=== PATIENT | male | born 1965 | race Caucasian/White ===

== ENCOUNTER 2017-02-26 21:24 | Emergency (ER) | payer MEDICAID ==
[~2017-02-26] VITALS: Ht 177.8 cm; Wt 66.5 kg
[2017-02-26 23:12] VITALS: BP 117/60
== END 2017-02-26 23:14 | disposition home or self-care (01) ==
LOC: ED 22:48
DX: S39.011A Strain of muscle, fascia and tendon of abdomen, initial encounter (principal); X58.XXXA Exposure to other specified factors, initial encounter; Y93.89 Activity, other specified; Y99.8 Other external cause status; Y92.89 Other specified places as the place of occurrence of the external cause
CPT/HCPCS: 76857; 76870; 99284

== ENCOUNTER 2018-02-14 12:13 | Emergency (ER) | payer MEDICAID ==
[~2018-02-14] VITALS: Ht 177.8 cm; Wt 63.6 kg
[2018-02-14] MEDS ORDERED: BACITRACIN ZINC OINT 500U/GM, 0.9 GM ONE (13:09)
[2018-02-14] MEDS ORDERED: ACETAMINOPHEN 500 MG TABLET ONE (13:22)
[2018-02-14] MEDS ORDERED: ACETAMINOPHEN 500 MG TABLET PO ONE (13:30)
[2018-02-14 13:37] VITALS: BP 131/85
== END 2018-02-14 13:40 | disposition home or self-care (01) ==
LOC: ED 13:30
DX: L03.116 Cellulitis of left lower limb (principal); K08.89 Other specified disorders of teeth and supporting structures
CPT/HCPCS: 99283

== ENCOUNTER 2021-02-16 17:57 | Emergency (ER) | payer MEDICAID ==
[~2021-02-16] VITALS: Ht 177.8 cm; Wt 65.9 kg
--- NOTE | 2021-02-16 18:14 | NUR ---
LAW FIRM ADMINISTRATOR: PT TO ROOM FROM DAGOBERTO RODRIGUEZ
--- NOTE | 2021-02-16 18:30 | NUR ---
CC OF LEG PAIN AND SWELLING. 4+ NON PITTING EDEMA NOTED TO BILAT FEET AND LEGS, STOPD [place]. PT HAS WEAK PULSES BILAT AND CAP REFILL IS <3 SECONDS. PT STATES SWEELLING HAS BEEN PRESENT FOR 3 WEEKS AND IT IS BECOMING PAINFUL TO WALK ON
[2021-02-16 19:16] LABS: BASOPHILS % (AUTO) 1 % (0-1); EOSINOPHILS % (AUTO) 2 % (1-7); LYMPHOCYTES % (AUTO) 27 % (22-44); MEAN CORPUSCULAR HEMOGLOBIN 30.8 pg (27.5-34.5); MEAN CORPUSCULAR HGB CONC 32.9 g/dL (33.2-36.2); MEAN PLATELET VOLUME 6.8 fL (7.4-10.4); MONOCYTES % (AUTO) 14 % (2-9); NEUTROPHILS % (AUTO) 56 % (42-75); PLATELET COUNT 283 x10^3/uL (130-400); RED CELL DISTRIBUTION WIDTH 13.5 % (9.4-14.8)
[2021-02-16 19:28] LABS: ALANINE AMINOTRANSFERASE 15 U/L (12-78); ALBUMIN 3.4 g/dL (3.4-5.0); CALCIUM 8.7 mg/dL (8.5-10.1); CHLORIDE 106 mmol/L (98-107); CREATININE 1.11 mg/dL (0.7-1.3)
[2021-02-16 19:31] LABS: MD NO
[2021-02-16 19:32] LABS: ALKALINE PHOSPHATASE 81 U/L (45-117); BILIRUBIN,TOTAL 0.7 mg/dL (0.2-1.0); TOTAL PROTEIN 7.1 g/dL (6.4-8.2); TROPONIN I < 0.015 ng/mL (0.000-0.045)
[2021-02-16 19:37] LABS: ANION GAP 4 mmol/L (5-15)
[2021-02-16 20:53] VITALS: BP 123/85
== END 2021-02-16 21:42 | disposition home or self-care (01) ==
LOC: ED 18:27
DX: R60.0 Localized edema (principal)
CPT/HCPCS: 36415; 71045; 80053; 83880; 84484; 85025; 99284